=== PATIENT | female | born 1985 | race Two or more races ===

== ENCOUNTER 2023-03-25 17:32 | Emergency (ER) | payer OTHER ==
[~2023-03-25] VITALS: Ht 160 cm; Wt 88.5 kg
[2023-03-25 19:41] LABS: HEMOGLOBIN 13.1 g/dL (12.0-15.00); MEAN CELL VOLUME 84.7 fL (80.00-100.00); MEAN CORPUSCULAR HEMOGLOBIN 28.5 pg (27.00-32.0); MEAN CORPUSCULAR HGB CONC 33.6 g/dl (32.0-36.0); PLATELET COUNT 302 K/uL (150-450); RED CELL DISTRIBUTION WIDTH 14.3 % (11.5-14.5)
== END 2023-03-25 22:41 | disposition home or self-care (01) ==
LOC: ER 17:33
DX: O00.01 Abdominal pregnancy with intrauterine pregnancy (principal); O36.4XX0 Maternal care for intrauterine death, not applicable or unspecified; Z3A.08 8 weeks gestation of pregnancy; R53.81 Other malaise; Z91.013 Allergy to seafood

== ENCOUNTER 2024-04-29 13:30 | Inpatient (IN) | payer OTHER ==
[~2024-04-29] VITALS: Ht 160 cm; Wt 93.0 kg
[2024-05-12] VITALS (11 sets, daily range): BP systolic 125–158; BP diastolic 72–92
[2024-05-12 06:07] LABS: HEMATOCRIT 36.3 % (36.0-45.00); HEMOGLOBIN 12.3 g/dL (12.0-15.00); MEAN CELL VOLUME 88.5 fL (80.00-100.00); MEAN CORPUSCULAR HGB CONC 33.9 g/dl (32.0-36.0); PLATELET COUNT 229 K/uL (150-450); RED BLOOD COUNT 4.11 M/uL (4.00-6.00); RED CELL DISTRIBUTION WIDTH 14.5 % (11.5-14.5)
[2024-05-12 06:30] LABS: URINE APPEARANCE Clear; URINE BILIRRUBIN Negative (NEGATIVE); URINE BLOOD Negative; URINE COLOR Yellow; URINE GLUCOSE Negative (NEGATIVE); URINE KETONE Negative (NEGATIVE); URINE LEUKOCYTE Negative; URINE NITRATE Negative; URINE PROTEIN Negative (NEGATIVE); URINE UROBILINOGEN 0.2 E.U./dl
[2024-05-12 06:33] LABS: URINE BACTERIA 287.6 uL (0.0-1933); URINE EPITHELIAL CELLS 14.5 uL (0.0-38.8); URINE RBC 7.9 uL (0.0-20.8); URINE WBC 9.4 uL (0.0-23.2)
[2024-05-12 06:36] LABS: ALBUMIN 2.8 gm/dL (3.4-5.0); BILIRUBIN TOTAL 0.3 mg/dL (0.3-1.2); CALCIUM 8.7 mg/dL (8.5-10.1); CREATININE SERUM 0.74 mg/dL (0.55-1.02); GFR 88.8; GLOBULINA 3.3 G/DL (2.4-3.5); POTASSIUM 4.03 mEq/L (3.5-5.1); TOTAL PROTEIN 6.1 gm/dL (6.4-8.2)
[2024-05-12 06:39] LABS: INR < 0.93; PARTIAL THROMBOPLASTIN TIME 26.2 SECONDS (22.0-34.0); PROTHROMBIN TIME 10.1 SECONDS (9.0-11.5)
[2024-05-12 06:53] LABS: URINE CAST 0.14 uL (0.0-1.40)
[2024-05-12] MEDS ORDERED: OXYTOCIN 500 ML IV SCH (07:00)
[2024-05-12] MEDS ORDERED: RINGERS SOLUTION,LACTATED 1,000 ML IV SCH (07:00)
[2024-05-12] MEDS ORDERED: PROMETHAZINE HCL 25 MG/ML AMPUL ONE (10:30)
[2024-05-12] MEDS ORDERED: MEPERIDINE HCL/PF 25 MG/ML VIAL IV ONE (11:00)
[2024-05-12] MEDS ORDERED: PROMETHAZINE HCL 25 MG/ML AMPUL IV ONE (11:00)
[2024-05-12] MEDS ORDERED: ERYTHROMYCIN BASE OPHT 1GM EACH TUBE OP ONE ×2 (13:56→15:15)
[2024-05-12] MEDS ORDERED: CHLORHEXIDINE GLUCONATE 120 ML BOTTLE TOP ONE ×2 (13:56→15:15)
[2024-05-12] MEDS ORDERED: LIDOCAINE HCL 1% 10ML VIAL ONE (13:56)
[2024-05-12] MEDS ORDERED: OXYTOCIN 20 UNITS/1000ML RL PIGGYBAG IV ONE ×3 (13:56→18:16)
[2024-05-12] MEDS ORDERED: LIDOCAINE HCL 1% 10ML VIAL IJ ONE (15:15)
[2024-05-12] MEDS ORDERED: ACETAMINOPHEN 325 MG TABLET PO PRN (15:15)
[2024-05-12] MEDS ORDERED: OxyCODONE HCL/APAP UD (PERCOCET) PO PRN (15:15)
[2024-05-12] MEDS ORDERED: HYDROCORTISONE 2.5% 30 GM TUBE RECTAL SCH (17:00)
[2024-05-12] MEDS ORDERED: BENZOCAINE/MENTHOL 90 ML BOTTLE TOP SCH (17:00)
[2024-05-13 01:40] LABS: HEMOGLOBIN 11.2 g/dL (12.0-15.00); MEAN CELL VOLUME 88.6 fL (80.00-100.00); MEAN CORPUSCULAR HEMOGLOBIN 29.2 pg (27.00-32.0); PLATELET COUNT 219 K/uL (150-450); RED BLOOD COUNT 3.83 M/uL (4.00-6.00); RED CELL DISTRIBUTION WIDTH 14.6 % (11.5-14.5)
[2024-05-13 04:29] VITALS: BP 124/78
[2024-05-13 06:05] VITALS: BP 126/79; O2SAT 99
[2024-05-13 12:02] VITALS: BP 122/70
[2024-05-13 12:30] VITALS: BP 126/72
[2024-05-13 17:54] VITALS: BP 139/76
[2024-05-14 00:24] VITALS: BP 118/75
[2024-05-14 08:00] VITALS: BP 115/70
== END 2024-05-14 12:58 | disposition home or self-care (01) | DRG 807 ==
LOC: SURH 05-10 13:30 → LDR 05-12 04:48 → OB/GYN 05-13 08:19
PROVIDERS: ADMIT Specialist; ATTEND Specialist
PROC: 10E0XZZ Delivery of Products of Conception, External Approach (ICD-10-PCS; principal; 2024-05-12)
PROC: 0W8NXZZ Division of Female Perineum, External Approach (ICD-10-PCS; 2024-05-12)
PROC: 4A1HXCZ Monitoring of Products of Conception, Cardiac Rate, External Approach (ICD-10-PCS; 2024-05-12)
DX: O80 Encounter for full-term uncomplicated delivery (principal); Z37.0 Single live birth; Z3A.40 40 weeks gestation of pregnancy